=== PATIENT | male | born 1935 | race Caucasian/White ===

== ENCOUNTER 2021-10-04 11:42 | Outpatient (CLI) | payer MEDICARE ==
[2021-10-05 13:54] LABS: SARS-CoV-2 PCR by NAA Not Detected (NotDetected)
== END 2021-10-04 11:43 | disposition home or self-care (01) ==
LOC: CSHLAB 11:42
PROVIDERS: ATTEND Internal Medicine Gastroenterology
DX: Z20.822 Contact with and (suspected) exposure to COVID-19 (principal)
CPT/HCPCS: U0003; U0005

== ENCOUNTER 2021-10-09 08:03 | Day surgery (SDC) | payer MEDICARE ==
[2021-10-08 13:00] VITALS: BMI 28.5
[2021-10-09] MEDS ORDERED: Lidocaine 1% MPF 2 ML VIAL ONE (08:27)
[2021-10-09] MEDS ORDERED: PROPOFOL 40 ML ONE (09:51)
[2021-10-09] MEDS ORDERED: Lidocaine 2% MPF 10 ML AMP (For Epidural Use) ONE (09:55)
[2021-10-09] MEDS ORDERED: Glycopyrrolate 0.2 MG/ML 5 ML SYRINGE ONE (09:59)
== END 2021-10-09 11:21 | disposition home or self-care (01) ==
LOC: CSHSDC 08:03
PROVIDERS: ATTEND Internal Medicine Gastroenterology
PROC: 0DBM8ZX Excision of Descending Colon, Via Natural or Artificial Opening Endoscopic, Diagnostic (ICD-10-PCS; principal; 2021-10-09)
PROC: 0DBL8ZX Excision of Transverse Colon, Via Natural or Artificial Opening Endoscopic, Diagnostic (ICD-10-PCS; 2021-10-09)
DX: D12.4 Benign neoplasm of descending colon (principal); D12.3 Benign neoplasm of transverse colon; K57.30 Diverticulosis of large intestine without perforation or abscess without bleeding; Q43.8 Other specified congenital malformations of intestine; Z86.010 Personal history of colon polyps; I25.10 Atherosclerotic heart disease of native coronary artery without angina pectoris; Z95.1 Presence of aortocoronary bypass graft; I10 Essential (primary) hypertension; E78.5 Hyperlipidemia, unspecified; K21.9 Gastro-esophageal reflux disease without esophagitis; E03.9 Hypothyroidism, unspecified; Z79.82 Long term (current) use of aspirin; Z79.899 Other long term (current) drug therapy
CPT/HCPCS: 88305; J2704